=== PATIENT | male | born 1995 | race Caucasian/White ===

== ENCOUNTER 2022-05-07 17:44 | Emergency (ER) | payer SELFPAY ==
[~2022-05-07] VITALS: Ht 172.7 cm; Wt 77.1 kg
[2022-05-07 18:04] VITALS: BP 135/81
--- NOTE | 2022-05-07 18:24 | NUR ---
PT AMBULATED TO ROOM 4
--- NOTE | 2022-05-07 18:27 | NUR ---
27YO MALE PT C/O NUMBING GREER IN EXTREMITIES XTODAY. PT STATES HE FELT "HEART RACING" AND HAD NEAR SYNCOPE EPISODE IN PUBLIC RESTROOM . DENIES RECENT INJURY, LOSS OF SENSATION, N/V/D , CHEST PAIN. SOB , FEVER OR CHILLS. PT AAOX4, SPEAKING IN CLEAR FULL SENTENCES. RESPIRATIONS EVEN AND UNLABORED. HX:DENIES NKA
--- NOTE | 2022-05-07 18:34 | NUR ---
MD SHELBY AT BEDSIDE FOR EVALUATION
--- NOTE | 2022-05-07 19:00 | NUR ---
Patient discharged with v/s stable. Written and verbal after care instructions FOR PALPITATIONS given and explained. Patient verbalized understanding. Ambulatory with steady gait. All questions addressed prior to discharge. Advised to follow up with PMD.
--- NOTE | 2022-05-07 19:09 | NUR ---
The patient's care was reviewed and supervised by ED Agency Nurse 9, RN, RN.
== END 2022-05-07 19:00 | disposition home or self-care (01) ==
LOC: MED 17:44
DX: R20.0 Anesthesia of skin (principal)
CPT/HCPCS: 99281